=== PATIENT | male | born 1995 | race Caucasian/White ===

== ENCOUNTER → 2025-06-07 11:47 | Outpatient (BNV) | payer SELFPAY | PROVIDERS: Visit Provider Radiology Diagnostic Radiology | DX: M25.579 Pain in unspecified ankle and joints of unspecified foot (principal) | CPT/HCPCS: 73610 ==

== ENCOUNTER 2025-06-07 11:50 | Emergency (ER) | payer OTHER, SELFPAY ==
--- NOTE | ~2025-06-07 | XR_ITS ---
EXAMINATION: XR ANKLE, MOSHE MIN 3V CLINICAL INFORMATION: ankle injury COMPARISON: None available. TECHNIQUE: AP, lateral, and mortise views of each ankle. FINDINGS: LEFT ANKLE: No fracture, dislocation, or suspicious bone lesion. Normal bone mineralization. Normal alignment. Mortise intact. Talar dome is normal. Joint spaces are preserved. No significant arthropathy. Normal plantar arch. No significant ankle joint effusion. Soft tissues appear normal. RIGHT ANKLE: No fracture, dislocation, or suspicious bone lesion. Normal bone mineralization. Normal alignment. Mortise intact. Talar dome is normal. Joint spaces are preserved. No significant arthropathy. Normal plantar arch. No significant ankle joint effusion. Soft tissues appear normal. XR/XR Ankle Moshe min 3V IMPRESSION: 1. No acute bony abnormalities of either ankle. Electronically signed by: Adelso Holman MD 06/07/2025 12:55 PM EDT
[2025-06-07 12:00] VITALS: BP 114/54; PULSE 94; RESP 18; TEMP 36.9; O2SAT 95
[2025-06-07 12:02] VITALS: BP 126/78; PULSE 99; O2SAT 97; BMI 32.5
[2025-06-07 12:56] LABS: MANUAL DIFF FLAG NO
[2025-06-07 12:58] LABS: Hematocrit 43.0 % (42.0-52.0); Hemoglobin 15.2 g/dl (14.0-18.0); Imm Gran Abs Auto 0.08 X10*3/uL (0.00-0.03); Imm Gran Pct Auto 0.6 % (0.0-0.4); Lymphocytes Absolute Auto 0.8 X10*3/uL (1.2-4.9); Mean Corpuscular HGB Conc 35.3 g/dl (31.0-36.0); Mean Corpuscular Hemoglobin 30.9 pg (27.0-33.0); Mean Corpuscular Volume 87.4 fL (80.0-98.0); NRBC Abs Auto 0.000 X10*3/uL (0.0-0.012); NRBC Pct Auto 0.0 /100WBC (0.0-0.2); Platelet Count 337 X10*3/uL (160-400); Red Blood Count 4.92 X10*6/uL (4.60-5.80); White Blood Count 13.4 X10*3/uL (4.8-10.8)
[2025-06-07 13:11] LABS: Alanine Aminotransferase 37 U/L (0-40); Albumin Level 4.3 g/dL (3.5-5.0); Alkaline Phosphatase 63 U/L (39-117); Anion Gap 13 (12-20); Aspartate Amino Transferase 32 U/L (5-37); Blood Urea Nitrogen 13 mg/dL (9-16); Calcium 8.8 mg/dL (8.4-10.2); Carbon Dioxide 22 mmol/L (22-29); Chloride 107 mmol/L (96-108); Creatinine Clr Calc Pharmacy 113.0; Estimated Glomerular Filt Rate > 60; Potassium 4.1 mmol/L (3.3-5.1); Sodium 138 mmol/L (135-145); Total Protein 6.8 g/dL (6.5-8.0)
--- NOTE | 2025-06-07 13:32 | ED.EXTPRO ---
HPI - Extremity Problem General Chief complaint: Extremity Problem Stated complaint: ROLLED ANKLE WHILE RUNNING PER EMS Time Seen by Provider: 06/07/25 13:06 Source: patient and EMS Mode of arrival: EMS Limitations: no limitations History of Present Illness ED Provider: HPI Narrative: This is otherwise healthy 29-year-old male presenting from [employer], he states he finished PT evaluation course and started developing pain in his ankles and was told to come in for documentation, he reports that his ankles were swollen he did not injure them, no fevers or chills no chest pain or shortness of breath. Related Data Allergies Allergy/AdvReac Type Severity Reaction Status Date / Time No Known Allergies Allergy Verified 06/07/25 12:06 Review of Systems Constitutional: Constitutional: Reports as per [facility] Social History Social History Advance Directives: No Advance Directives Information Provided: No Do you have a plan to hurt others: No Plan Physical Exam Vital Signs: Vital Signs: Last Vital Signs Temp 98.5 F 06/07/25 12:00 Pulse 94 06/07/25 12:00 Resp 18 06/07/25 12:00 BP 114/54 L 06/07/25 12:00 Pulse Ox 95 06/07/25 12:00 O2 Del Method Room Air 06/07/25 12:00 BMI result Body Mass Index 32.5 Const: Other: Overall well-appearing examined on the [place]valentine Examination of his lower extremities reveals soft proximal distal compartments, distal pulses intact, no ankle edema, no deformities, no skin discoloration, no midfoot tenderness Medical Decision Making Medical Decision Making [facility] Narrative: Overall well-appearing no evidence for sprains, stress fractures, compartment syndrome, other considerations as below, overall everything is reassuring exam and workup we will discharge Differential Diagnosis Differential Diagnoses: The differential diagnosis associated with the presentation includes (Rhabdomyolysis, sprain, fracture, stress fracture, DVT) Lab Data 06/07/25 12:51 06/07/25 12:51 Labs: Lab Results 06/07/25 Range/Units 12:51 WBC 13.4 H (4.8-10.8) X10*3/uL RBC 4.92 (4.60-5.80) X10*6/uL Hgb 15.2 (14.0-18.0) g/dl Hct 43.0 (42.0-52.0) % MCV 87.4 (80.0-98.0) fL MCH 30.9 (27.0-33.0) pg MCHC 35.3 (31.0-36.0) g/dl RDW 11.9 (11.0-16.0) % Plt Count 337 (160-400) X10*3/uL MPV 8.4 L (9.4-12.4) fL Immature Gran % (Auto) 0.6 H (0.0-0.4) % Neut % (Auto) 87.4 H (45-73) % Lymph % (Auto) 6.1 L (20-40) % [place] % (Auto) 5.2 (2-11) % Eos % (Auto) 0.5 (0-4) % Baso % (Auto) 0.2 (0-2) % Lymph # (Auto) 0.8 L (1.2-4.9) X10*3/uL [place] # (Auto) 0.7 (0.1-1.2) X10*3/uL Eos # (Auto) 0.1 (0.0-0.4) X10*3/uL Baso # (Auto) 0.0 (0.0-0.2) X10*3/uL Abs Immat Gran (auto) 0.08 H (0.00-0.03) X10*3/uL Absolute Neuts (auto) 11.7 H (2.0-8.3) x10*3/uL Absolute Nucleated RBC 0.000 (0.0-0.012) X10*3/uL Nucleated RBC % (auto) 0.0 (0.0-0.2) /100WBC Sodium 138 (135-145) mmol/L Potassium 4.1 (3.3-5.1) mmol/L Chloride 107 (96-108) mmol/L Carbon Dioxide 22 (22-29) mmol/L Anion Gap 13 (12-20) BUN 13 (9-16) mg/dL Creatinine 1.31 (0.5-1.4) mg/dL Estim Creat Clear Calc 113.0 Estimated GFR > 60 Random Glucose 101 (60-115) mg/dL Calcium 8.8 (8.4-10.2) mg/dL Total Bilirubin 1.1 H (0.0-1.0) mg/dL AST 32 (5-37) U/L ALT 37 (0-40) U/L Alkaline Phosphatase 63 (39-117) U/L Total Creatine Kinase 309 H (38-174) U/L Total Protein 6.8 (6.5-8.0) g/dL Albumin 4.3 (3.5-5.0) g/dL Discharge Plan Discharge Clinical Impression: Acute bilateral ankle pain Patient Disposition: Home, Self-Care Additional Instructions: Your x-rays on blood work reassuring, stay well hydrated, take ibuprofen 400 mg every 6 hours needed for pain, ice 0 ankles, returned to activity when you feel better Print Language: Telugu
[2025-06-07 13:47] VITALS: BP 114/54; PULSE 94; RESP 18; TEMP 36.9; O2SAT 95
== END 2025-06-07 13:47 | disposition home or self-care (01) ==
PROVIDERS: Emergency Provider Emergency Medicine
DX: M25.571 Pain in right ankle and joints of right foot (principal); M25.572 Pain in left ankle and joints of left foot; Z79.899 Other long term (current) drug therapy
CPT/HCPCS: 36415; 73610; 80053; 82550; 85025; 99283; 99284